=== PATIENT | female | born 1950 | race Caucasian/White ===

== ENCOUNTER → 2025-01-27 | Outpatient (CLI) | payer MEDICARE, MEDICAID, SELFPAY ==
--- NOTE | 2025-01-27 15:30 | XR_ITS ---
Examination: Arterial duplex lower extremity study. Date and time of exam: January 27, 2025 1545 hours INDICATIONS: Diagnosis peripheral obstructive arterial disease in the lower extremities years Findings: Duplex sonographic imaging of the lower extremity arteries using B-mode/[place] scale imaging and Doppler spectral analysis and color flow. Ankle brachial indices have been recorded. Right common femoral artery demonstrates monophasic flow. Right superficial femoral artery demonstrates monophasic flow. Right popliteal artery demonstrates monophasic flow. Right posterior tibial artery demonstrated monophasic flow. Right ankle/brachial index is 0.5. Left common femoral artery demonstrates monophasic flow. Left superficial femoral artery demonstrates monophasic flow. Left popliteal artery demonstrates monophasic flow. Left posterior tibial artery demonstrated monophasic flow. Left ankle/brachial index is 0.5. Impression: Severe bilateral peripheral obstructive arterial disease Consider correlation with CTA abdominal aorta iliofemoral run off post intravenous contrast
== END | disposition home or self-care (01) ==
LOC: CDIM 15:24
PROVIDERS: PCP Physician Assistant; Referring Provider Physician Assistant; Visit Provider Physician Assistant
DX: I73.9 Peripheral vascular disease, unspecified (principal)
CPT/HCPCS: 93925

== ENCOUNTER → 2025-03-16 | Outpatient (CLI) | payer MEDICARE, MEDICAID, SELFPAY ==
[2025-03-16 17:55] LABS: Blood Urea Nitrogen 14 mg/dL (9-23); Creatinine (Component) 1.3 mg/dL (0.6-1.3); eGFR 42 See Note
== END | disposition home or self-care (01) ==
LOC: COPL 15:57
PROVIDERS: PCP Physician Assistant; Referring Provider Surgery Vascular Surgery; Visit Provider Surgery Vascular Surgery
DX: I70.211 Atherosclerosis of native arteries of extremities with intermittent claudication, right leg (principal)
CPT/HCPCS: 36415; 82565; 84520

== ENCOUNTER → 2025-03-22 | Outpatient (CLI) | payer MEDICARE, MEDICAID, SELFPAY ==
--- NOTE | 2025-03-22 15:30 | XR_ITS ---
Examination: CTA abdominal aorta iliofemoral runoff. 2-D sagittal coronal reconstructions. 3-D reconstructions, vascular Exam date and time: March 22, 2025 1609 hours INDICATIONS: Numbness and pain in the lower extremities 2 months, diagnosis atherosclerosis of [place] arteries of extremity Technique: Multiple CTA images of the abdominal aorta iliofemoral runoff arterial vessels, 2.0 mm slice thickness, post intravenous administration 130 cc [id number] 2-D sagittal coronal reconstructions. 3-D reconstructions, vascular 3-D postprocessing, including vascular maximum intensity projection images, 3-D volume rendering Low dose protocols were performed. One or more of the following dose reduction techniques were used; automated exposure control, adjustment of the mA and/or KV according to patient size, use of iterative reconstruction technique. Findings: Mild enlargement cardiac contour No focal liver or splenic lesions Gallstones Gallbladder wall appears thickened Severe scarring left kidney with prominent left hydronephrosis, wall thickening of the pelvicalyceal system Wall thickening involving the urinary bladder No bowel obstruction Normal appendix Aortic calcification Heavy calcification origin celiac and superior mesenteric axes Attenuated left renal arteries Severe calcification at the aortic bifurcation 80% plus stenosis extending into the origin of the common iliac arteries Occlusion proximal right common iliac artery over 15 mm, second more distal 90% stenosis right common iliac artery image 147 70% stenosis mid left common iliac artery Occlusion both external iliac arteries with reconstitution with collaterals of the common femoral arteries Right superficial femoral artery intact as well as right popliteal artery Attenuation right main continuation trunk Poor filling and probable occlusion of the mid and distal right anterior tibial artery Left superficial femoral artery intact as well as left popliteal artery Occlusion of the proximal left anterior tibial artery markedly attenuated main continuation trunk Left anterior tibial artery fills to the ankle IMPRESSION: Severe calcification at the aortic bifurcation, 80% plus stenosis at the bifurcation extending into the origin of the common iliac arteries Occlusion right common iliac artery over 15 mm, more distal 90% stenosis right segment 70% stenosis mid left common iliac artery Occlusion both external iliac arteries with reconstitution of the common femoral arteries Trifurcation arterial disease as above
== END | disposition home or self-care (01) ==
LOC: CCTX 15:00
PROVIDERS: PCP Surgery Vascular Surgery; Referring Provider Surgery Vascular Surgery; Visit Provider Surgery Vascular Surgery
DX: I70.0 Atherosclerosis of aorta (principal); I70.202 Unspecified atherosclerosis of native arteries of extremities, left leg; I77.89 Other specified disorders of arteries and arterioles
CPT/HCPCS: 75635; A4649; Q9967

== ENCOUNTER 2025-04-24 03:36 | Emergency (ER) | payer MEDICARE, MEDICAID, SELFPAY ==
[2025-04-24 03:42] VITALS: BP 144/83; PULSE 85; RESP 18; TEMP 36.9; O2SAT 95
--- NOTE | 2025-04-24 03:45 | XR_ITS ---
Examination: CT abdomen and pelvis without contrast. Coronal 3-D reconstructions. Sagittal 2-D reconstructions. Date and time of exam:April 23, 2025, 0356 hrs. Indications: Onset abdominal pain and vomiting today. CTDI: vol (mGy): 8.98. DLP: (mGycm): 509 Technique: Axial images of the abdomen have been obtained, 3 mm slice thickness Intravenous contrast material has not been administered. Low dose protocols were performed. One or more of the following dose reduction techniques were used; automated exposure control, adjustment of the mA and/or KV according to patient size, use of iterative reconstruction technique. Findings: Heavy calcification left anterior descending coronary artery Mild enlargement cardiac contour. No focal liver or splenic lesions Gallstones No pancreatic or adrenal mass Atrophic severely scarred left kidney without ureteral calculi, perhaps ureteral stricture No pericecal inflammatory change Numerous fluid distended small bowel loops No pelvic mass Bladder intact Severe osteopenia with moderate degenerative disc disease L4-L5, L5-S1 Impression: Cholelithiasis Atrophic severely scarred left kidney with significant hydronephrosis which may relate to chronic ureteral stricture, no ureteral calculi noted Fluid distended small bowel loops, consider ileus, enteritis, early small bowel obstruction not excluded, clinical correlation advised.
--- NOTE | 2025-04-24 03:47 | PD.EDRME ---
Rapid Medical Screening Exam RME Arrival date/time: 04/24/25 03:36 This is a case of 75 y/o female with pmhx CHF, HTN, HLD, on Plavix came in in the emergency room due to generalized abdominal pain nausea vomiting diarrhea today worsening of the symptoms this patient decided to start consult here in the emergency room Chief Complaint: Nausea/Vomiting/Diarrhea Time Seen by Provider: 04/24/25 03:45 Vital signs: Vital Signs Temperature 98.4 F 04/24/25 03:42 Pulse Rate 85 04/24/25 03:42 Respiratory Rate 18 04/24/25 03:42 Blood Pressure 144/83 H 04/24/25 03:42 Pulse Oximetry (%) 95 04/24/25 03:42 Oxygen Delivery Method Room Air 04/24/25 03:42
[2025-04-24] MEDS: ONDANSETRON ODT 4 MG TABRAP PO (04:01)
--- NOTE | 2025-04-24 04:14 | PC.NURSE ---
pt states im going to pass out . this nurse assessed pt. vital signs were taken. bp of 158/99, heart rate of 85, o2 sats 94% on room air. pt denies sob, chest pain, or dizziness. pt reports that she is weak and has n/v/d. zofran was given. pt was educated that it may take some time for the med to start taking affects. approx 5min earlier med was given to pt. this rn told pt she will wait in lobby. pt raised voice and stated that she doesnt want to go to lobby. pt wanted to stay in the triage room. rn told patient that triage room are not meant for pt to stay as a waiting room.
--- NOTE | 2025-04-24 04:29 | PD.EDNV ---
Nausea/Vomit./Diarrhea-RME/HPI General Chief complaint: Nausea/Vomiting/Diarrhea Stated complaint: VOMITING,ABD PAIN Time Seen by Provider: 04/24/25 03:45 Source: patient Arrival date/time: 04/24/25 03:36 Mode of arrival: ambulatory Limitations: no limitations RME / HPI RME / HPI Narrative: 04/24/25 03:36 This is a case of 75 y/o female with pmhx CHF, HTN, HLD, on Plavix came in in the emergency room due to generalized abdominal pain nausea vomiting diarrhea today worsening of the symptoms this patient decided to start consult here in the emergency room. Dr. Bhatia?s Main ED Evaluation: Related Data Home Medications ?Medication ?Instructions ?Recorded ?Confirmed clopidogrel 75 mg tablet (Plavix) 75 mg PO DAILY BLOOD THINNER ##0 05/24/10 12/15/20 simvastatin 40 mg tablet 40 mg PO HS CHOLESTEROL ##0 05/24/10 12/15/20 clonazepam 0.5 mg tablet (Klonopin) 0.5 mg PO TID PRN ANXIETY #0 tabs 10/19/14 12/15/20 amlodipine 5 mg tablet 5 mg PO QDAY 05/06/18 12/15/20 benazepril 20 mg tablet 20 mg PO BID 05/06/18 12/15/20 meclizine 25 mg tablet 25 mg PO QDAY 05/06/18 12/15/20 bupropion HCl 300 mg 24 hr tablet, 300 mg PO QAM 09/14/20 12/15/20 extended release (Wellbutrin XL) conjugated estrogens 0.625 mg 0.625 mg PO QDAY 09/14/20 12/15/20 tablet (Premarin) diphenoxylate-atropine 2.5 1 tab PO QHS PRN 09/14/20 12/15/20 mg-0.025 mg tablet (Lomotil) oxybutynin chloride 10 mg 10 mg PO QDAY 09/14/20 12/15/20 tablet,extended release 24 hr Previous Rx's ?Medication ?Instructions ?Recorded ondansetron 4 mg disintegrating 4 mg PO Q6H PRN nausea and 07/24/18 tablet vomiting #14 tabs hydrocodone 10 mg-acetaminophen 1 tab PO Q8H PRN pain #10 tabs 04/08/23 325 mg tablet Allergies Allergy/AdvReac Type Severity Reaction Status Date / Time prochlorperazine Allergy Severe NAUSEA, Verified 04/24/25 03:37 VOMITING morphine Allergy Intermediate Rash Verified 04/24/25 03:37 Review of Systems Review of Systems Systems Reviewed: All systems reviewed, normal except as documented Past Medical History Past Medical History CARDIAC: Positive Cardiac Disorders, Peripheral Vascular Disease, Hypercholesterolemia, Congestive Heart Failure and Hypertension RESPIRATORY: Negative Chronic Obstructive Pulmonary Disease (COPD) or Asthma GENITOURINARY: Negative Renal Disease ENDOCRINE: Negative Diabetes Mellitus Type 1 or Diabetes Mellitus Type 2 HEMATOLOGIC: Negative Sickle Cell Disease OTHER HISTORY: Positive Clostridium Difficile and Cervical Cancer Family History FAMILY HISTORY: Positive Family Cardiac Disorders Surgical History SURGICAL: Positive Coronary Artery Bypass Graft and Hysterectomy Social History SMOKING STATUS: Current some day smoker SECOND HAND EXPOSURE: No ED Exam General Limitations: Present no limitations Course Quality Measures none Orders Category Date Time Status CT abdomen pelvis wo con Stat Exams 04/24/25 03:45 Taken CBC Stat Lab 04/24/25 03:45 Ordered Comprehensive Metabolic Panel Stat Lab 04/24/25 03:45 Ordered Lipase Stat Lab 04/24/25 03:45 Ordered Urinalysis Stat Lab 04/24/25 03:45 Ordered Ondansetron Inj [Zofran Inj] Med 04/24/25 03:45 Discontinued 4 mg IVP X1 ONE Ondansetron Odt [Zofran Odt] Med 04/24/25 03:56 Discontinued 4 mg PO X1 ONE Sodium Chloride 0.9% 1000 ml [Ns] 1,000 ml Med 04/24/25 03:46 Discontinued IV 999 mls/hr Vital Signs Vital signs: Vital Signs Temperature 98.4 F 04/24/25 03:42 Pulse Rate 85 04/24/25 03:42 Respiratory Rate 18 04/24/25 03:42 Blood Pressure 144/83 H 04/24/25 03:42 Pulse Oximetry (%) 95 04/24/25 03:42 Oxygen Delivery Method Room Air 04/24/25 03:42 Nausea/Vomiting/Diarrhea MDM Narrative MDM Narrative:: Scribe Attestation: [email or web address] am scribing for and in the presence of Dr. Bhatia. Provider Notation: Although this document has been carefully reviewed, there may still be some phonetic and other typographical errors. These errors are purely grammatical due to imperfections in the software program and should not be construed in any way to compromise the substance of the patient's medical care during this visit. Patient data External records reviewed:: [facility] previous records Clinical information provided by:: patient Social determinants that could affect healthcare access:: none Patient has the following chronic illnesses:: See PMH above How is presenting disease/condition affected by chronic disease/condition?: uneffected by Evaluation data The following diagnostics were reviewed and interpreted by me:: lab results and radiology exam(s) Lab and/or radiology exams considered but not ordered:: na Interpretation Summary: Refer to [facility] Medications / Prescriptions Medications / Prescriptions considered but not ordered:: na Medication administrations:: Medication Administration History Discontinued Medications Sodium Chloride (Ns) 1,000 mls @ 999 mls/hr IV .Q1H1M ONE Stop: 04/24/25 04:46 Ondansetron HCl (Ondansetron Inj 2 Mg/Ml Inj 2 Ml) 4 mg IVP X1 ONE; Protocol Stop: 04/24/25 03:46 Last Admin: 04/24/25 03:55 Dose: Not Given Documented By: IDANIA Non-Admin Reason: Cancelled by Provider Ondansetron HCl (Ondansetron Odt 4 Mg Tabrap) 4 mg PO X1 ONE; Protocol Stop: 04/24/25 03:57 Last Admin: 04/24/25 04:01 Dose: 4 mg Documented By: IDANIA as above, if any Diagnosis Most likely diagnosis given after review of the tests above:: See clinical impression below Discharge Plan Prescriptions/Referrals Prescriptions/Med Rec: No Action bupropion HCl [Wellbutrin XL] 300 mg tablet extended release 24 hr 300 mg PO QAM Premarin 0.625 mg tablet 0.625 mg PO QDAY diphenoxylate-atropine [Lomotil] 2.5-0.025 mg tablet 1 tab PO QHS PRN oxybutynin chloride 10 mg tablet extended release 24hr 10 mg PO QDAY clopidogrel [Plavix] 75 MG tablet 75 mg PO DAILY Qty: 0 simvastatin 40 MG tablet 40 mg PO HS Qty: 0 clonazepam [Klonopin] 0.5 MG tablet 0.5 mg PO TID PRN (Reason: ANXIETY) Qty: 0 amlodipine 5 mg tablet 5 mg PO QDAY meclizine 25 mg tablet 25 mg PO QDAY benazepril 20 mg tablet 20 mg PO BID ondansetron 4 mg tablet,disintegrating 4 mg PO Q6H PRN (Reason: nausea and vomiting) Qty: 14 0RF hydrocodone-acetaminophen 10-325 mg tablet 1 tab PO Q8H MDD 3 PRN (Reason: pain) Qty: 10 0RF Referrals: Sylvia Aguilar PA-C [Primary Care Provider, Family Practice] - In 1 week Patient/Caregiver Discharge Instructions Print Language: Iranian
[2025-04-24 04:40] VITALS: BP 166/85; PULSE 85; RESP 15; TEMP 36.4; O2SAT 94
[2025-04-24 04:53] LABS: Basophils # (Auto) 0.0 Thou/mm3 (0.0-0.2); Basophils % (Auto) 0 % (0-2.5); Eosinophils # (Auto) 0.1 Thou/mm3 (0.0-0.5); Eosinophils % (Auto) 2 % (0-10); Hematocrit 47.9 % (36.0-46.0); Hemoglobin 15.8 g/dL (12.0-16.0); Immature Granulocytes Auto 0.01 Thou/mm3 (0.00-0.00); Lymphocytes # (Auto) 0.8 Thou/mm3 (1.0-4.8); Lymphocytes % (Auto) 12 % (10-50); Mean Corpuscular HGB Conc 33.0 g/dl (31.0-37.0); Mean Corpuscular Hemoglobin 33.2 pg (25.0-35.0); Mean Corpuscular Volume 101 fL (80-100); Monocytes # (Auto) 0.4 Thou/mm3 (0.0-0.8); Monocytes % (Auto) 6 % (0-12); Neutrophils # (Auto) 5.3 Thou/mm3 (1.8-7.7); Neutrophils % (Auto) 80 % (37-80); Nucleated Red Blood Cell # 0.00 Thou/mm3 (0.00-0.00); Nucleated Red Blood Cell % 0 /100 WBC (0); Platelet Count 177 Thou/mm3 (140-440); RDW Standard Deviation 46.5 fL (36.4-46.3); Red Blood Count 4.76 Miln/mm3 (4.00-5.20); White Blood Count 6.6 Thou/mm3 (3.6-11.0)
[2025-04-24 04:55] VITALS: BMI 32.5
[2025-04-24 05:12] LABS: Alanine Aminotransferase 146 U/L (10-49); Albumin, Serum 4.5 gm/dL (3.4-4.8); Albumin/Globulin Ratio 1.2 (1.2-2.2); Alkaline Phosphatase 309 U/L (46-116); Anion Gap 11 (7-16); Aspartate Amino Transferase 291 U/L (0-34); BUN/Creatinine Ratio 9 Ratio (12-20); Bilirubin,Total 2.4 mg/dL (0.3-1.2); Blood Urea Nitrogen 11 mg/dL (9-23); Calcium 10.0 mg/dL (8.3-10.6); Calcium (Corrected) 10.0 mg/dL (8.5-10.1); Carbon Dioxide 31.4 mMol/L (20.0-31.0); Chloride 97 mMol/L (98-107); Creatinine (Component) 1.2 mg/dL (0.6-1.3); Estimated Creatinine Clearance 38.6 mL/min (>60); Globulin 3.9 gm/dL (2.3-3.5); Glucose 142 mg/dL (74-106); Osmolality,Calculated 278 (275-295); Potassium 4.5 mMol/L (3.4-5.1); Sodium 139 mMol/L (136-145); Total Protein 8.4 gm/dL (5.7-8.2); eGFR 47 See Note
--- NOTE | 2025-04-24 05:13 | PRELIM_ITS ---
CT scan of the abdomen and pelvis without intravenous contrast (axial sections with sagittal and coronal reformats) April 24, 2025 at 0356 hours Clinical History: Abdominal pain. Comparison: No prior study is available for comparison. Findings: The lung bases are clear. Coronary atherosclerosis is noted. Mild cardiomegaly. Small gastric hiatal hernia. Cholelithiasis. Questionable gallbladder wall thickening, obscured by motion. The liver, spleen, adrenal glands, pancreas are unremarkable. Severe left hydroureteronephrosis and renal atrophy. Normal right kidney. The urinary bladder is decompressed, limiting evaluation. There is no adnexal cyst or mass. The appendix is not visualized; however, there is no evidence of inflammatory process in the right lower quadrant to suggest appendicitis. No free intraperitoneal air or fluid. Diffuse small bowel air-fluid levels with upper normal bowel caliber. The distal small bowel is decompressed. Colon is decompressed. Mild small bowel mesenteric edema. No acute osseous process. 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 Probable stenosis of the bilateral iliac arteries. Femoral-femoral artery graft. Moderate pelvic floor prolapse. Impression: 1. Cholelithiasis. Consider ultrasound if there is concern for cholecystitis. 2. Chronic left distal ureteral obstruction with severe renal atrophy. 3. Ileus versus early or partial distal small bowel obstruction. Consider adhesions. 4. Severe atherosclerotic disease as above. Report Electronically Signed By: Brian Hyde 04/24/2025 5:13:23 AM [EST]
--- NOTE | 2025-04-24 05:18 | XR_ITS ---
Examination: Abdomen sonogram, Limited Date and time of exam: April 24, 2025, 0549 hrs. Indications: Right upper abdominal pain beginning 12 hours ago. Technique: Real-time blake scale transabdominal sonographic images of the upper abdomen obtained. Findings: Gallstones. Abnormal thickening gallbladder wall 0.6 cm Common bile duct enlarged 1.1 cm no definite stones. Pancreas obscured by bowel gas. Liver 13.5 cm fatty infiltration irregular margins no focal liver lesions Normal hepatopedal portal venous flow Patent IVC Impression: Calculus cholecystitis. Abnormal enlargement common bile duct 1.1 cm, consider MRCP follow-up.
--- NOTE | 2025-04-24 06:02 | PD.EDADDENDU ---
Emergency Room Addendum Addendum Narrative: 0600: Care assumed from Dr. Bhatia, the previous shift emergency physician. Past medical, surgical, social and family history reviewed. Vitals and home medications reviewed. Results and treatment plan discussed. I will assume the care of the patient at this time and will follow the patient, pending bed availability at [facility]. Please refer to the emergency department record for history and examination from initial visit.
[2025-04-24 06:04] VITALS: BP 169/88; PULSE 78; RESP 23; TEMP 37; O2SAT 95
--- NOTE | 2025-04-24 06:34 | PD.EDNV ---
Nausea/Vomit./Diarrhea-RME/HPI General Chief complaint: Nausea/Vomiting/Diarrhea Stated complaint: VOMITING,ABD PAIN Time Seen by Provider: 04/24/25 03:45 Arrival date/time: 04/24/25 03:36 Mode of arrival: ambulatory RME / HPI RME / HPI Narrative: 04/24/25 03:36 This is a case of 75 y/o female with pmhx CHF, HTN, HLD, on Plavix came in in the emergency room due to generalized abdominal pain nausea vomiting diarrhea today worsening of the symptoms this patient decided to start consult here in the emergency room. Ms Rosenberg is a 75 year old female with PMH of severe PAD s/p bilateral femoropopliteal bypass (on Plavix), H/O cervical cancer status post radiation therapy, status post hysterectomy, Hypertension, Hyperlipidemia and remote history of seizure disorder (not on any medication) who presented to [facility] ED with the chief complaint of abdominal pain. She complains of generalized abdominal pain since yesterday, moderate to severe intensity around periumblical region radiating to the whole abdomen, denies any aggravating and relieving factors. Also reports 10-12 episodes of emesis non-bloody consisting of undigested food associated with nausea. Patient also complains of bladder fullness, denies any dysuria or burning pain. 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 She denies any chest pain, headache, fevers, chills and myalgias. Related Data Home Medications ?Medication ?Instructions ?Recorded ?Confirmed clopidogrel 75 mg tablet (Plavix) 75 mg PO DAILY BLOOD THINNER ##0 05/24/10 12/15/20 simvastatin 40 mg tablet 40 mg PO HS CHOLESTEROL ##0 05/24/10 12/15/20 clonazepam 0.5 mg tablet (Klonopin) 0.5 mg PO TID PRN ANXIETY #0 tabs 10/19/14 12/15/20 amlodipine 5 mg tablet 5 mg PO QDAY 05/06/18 12/15/20 benazepril 20 mg tablet 20 mg PO BID 05/06/18 12/15/20 meclizine 25 mg tablet 25 mg PO QDAY 05/06/18 12/15/20 bupropion HCl 300 mg 24 hr tablet, 300 mg PO QAM 09/14/20 12/15/20 extended release (Wellbutrin XL) conjugated estrogens 0.625 mg 0.625 mg PO QDAY 09/14/20 12/15/20 tablet (Premarin) diphenoxylate-atropine 2.5 1 tab PO QHS PRN 09/14/20 12/15/20 mg-0.025 mg tablet (Lomotil) oxybutynin chloride 10 mg 10 mg PO QDAY 09/14/20 12/15/20 tablet,extended release 24 hr Previous Rx's ?Medication ?Instructions ?Recorded ondansetron 4 mg disintegrating 4 mg PO Q6H PRN nausea and 07/24/18 tablet vomiting #14 tabs hydrocodone 10 mg-acetaminophen 1 tab PO Q8H PRN pain #10 tabs 04/08/23 325 mg tablet Allergies Allergy/AdvReac Type Severity Reaction Status Date / Time prochlorperazine Allergy Severe NAUSEA, Verified 04/24/25 03:37 VOMITING morphine Allergy Intermediate Rash Verified 04/24/25 03:37 Review of Systems Review of Systems Narrative Review of Systems: ROS: -CONSTITUTIONAL: Denies weight loss, fever and chills. -HEENT: Denies changes in vision and hearing. -RESPIRATORY: Positive for SOB on exertion and denies any cough. -CV: Denies palpitations and Chest Pain. -GI: Positive for abdominal pain, nausea, vomiting, denies any constipation and diarrhea. -: Denies dysuria and urinary frequency. Positive for bladder fullness. -MSK: Denies myalgia and joint pain. -SKIN: Denies rash and pruritus. -NEUROLOGICAL: Denies headache and syncope. -PSYCHIATRIC: Denies recent changes in mood. Denies anxiety and depression. Past Medical History Past Medical History Comments PMH COMMENT: PMH: Positive for severe PAD s/p bilateral femoropopliteal bypass (on Plavix), H/O cervical cancer status post radiation therapy, status post hysterectomy, Hypertension, Hyperlipidemia and remote history of seizure disorder PSHx: Hysterectomy, bilateral femoropopliteal bypass (follows Dr Cates) Allergies: Morphine- Rash, Prochlorperazine- Nausea/Vomiting Social history: -Smoking: Denies -Alcohol Use: Denies Family History: No significant family history ED Exam Narrative Physical exam: Physical Exam General: Awake and in no acute distress. Conversational and non-toxic appearing. HEENT: Normocephalic, atraumatic, mucous membranes moist. Heart: Regular rate and rhythm, no murmurs. Lungs: Clear to auscultation with no wheezing or crackles. Abdomen: Soft, Obese, generalised tenderness, positive bowel sounds. Voluntary Guarding. Neurologic: Alert and oriented x3, no gross neurological deficit, and patient able to move all 4 extremities. Extremities: No edema. Skin: No rash or ecchymoses. Course Course Course Narrative: 08:49- Received a call from [facility] Transfer center, Presented case to the transfer nurse. She reported she will present to the Gi specialist and call us back. 10:50- Received a call from [facility] transfer center Areli Singleton she presented the case to advanced endoscopy PA Abi Godfrey, she recommends observing patient for 4 to 5 days and trend LFTs as patient took Plavix yesterday morning and patient is not a candidate for ERCP. case discussed with Dr. Diallo, will reach out to Areli to explain the need of emergent transfer. 11:15-Dr. Diallo discussed case with GI PA Abi Godfrey, mey HARTMAN patient cannot get ERCP needs Plavix and can be monitored at the facility. Dr. Diallo explained to her that patient needs further workup to rule out choledocholithiasis needs MRCP and delaying MRCP would be further delaying care and we will need ER to ER transfer for services not available at the facility. Informed transfer nurse, transfer center and transfer nurse supervisor hand workers, [facility] said they will reach back to us. 12:57-informed by charge nurse that patient is accepted at [facility], transport will be arranged by transfer nurse. Quality Measures none Orders Category Date Time Status In and Out Catheter X1 Care 04/24/25 06:48 Completed Consult to Gastroenterology Stat Cons 04/24/25 10:30 Ordered Referral - [place] Stat Cons 04/24/25 07:[address] abdomen pelvis wo con Stat Exams 04/24/25 03:45 Completed MR MRCP Stat Exams 04/24/25 Stop Req US gall bladder Stat Exams 04/24/25 05:18 Completed Amylase Stat Lab 04/24/25 12:24 Received CBC Stat Lab 04/24/25 04:45 Completed Comprehensive Metabolic Panel Stat Lab 04/24/25 04:45 Results Lipase Stat Lab 04/24/25 04:45 Results Lipase Stat Lab 04/24/25 12:24 Received Urinalysis Stat Lab 04/24/25 06:04 Completed DiphenhydrAMINE INJ [Benadryl Inj] Med 04/24/25 07:09 Active 25 mg IVP X1 PRN Morphine* Inj Med 04/24/25 07:01 Active 2 mg IVP Q4H PRN Ondansetron Inj [Zofran Inj] Med 04/24/25 03:45 Discontinued 4 mg IVP X1 ONE Ondansetron Odt [Zofran Odt] Med 04/24/25 03:56 Discontinued 4 mg PO X1 ONE Piper/Tazo 3.375 gm Premix [Zosyn] Med 04/24/25 14:00 Active 3.375 gm in 50 ml IV Q8HR Piper/Tazo Inj [Zosyn Inj] 4.5 gm Med 04/24/25 07:15 Discontinued Sodium Chloride 0.9% (Pop) [NS 0.9% mini bag] 100 ml IV X1 Sodium Chloride 0.9% 1000 ml [Ns] 1,000 ml Med 04/24/25 03:46 Discontinued IV 999 mls/hr Sodium Chloride 0.9% 500 ml [Ns] 500 ml Med 04/24/25 06:23 Discontinued IV 999 mls/hr Vital Signs Vital signs: Vital Signs Temperature 98.4 F 04/24/25 03:42 Pulse Rate 85 04/24/25 03:42 Respiratory Rate 18 04/24/25 03:42 Blood Pressure 144/83 H 04/24/25 03:42 Pulse Oximetry (%) 95 04/24/25 03:42 Oxygen Delivery Method Room Air 04/24/25 03:42 Nausea/Vomiting/Diarrhea MDM Narrative MDM Narrative:: #Calculus cholecystitis with Biliary Dilation Patient presented with abdominal pain Total Bilirubin 2.4, AST 291, ALT 146, Alk Phos 309 Gall Bladder US: Calculus cholecystitis., Abnormal enlargement common bile duct 1.1 cm, consider MRCP follow-up. CTAP: Cholelithiasis, -Started on IV Zosyn -Morphine for pain management -Transfer for further eavluation, MRCP/ERCP services not available at the facility #Vomiting and Nausea Bicarb elevated and low chloride secondary to multiple episodes of emesis -Zofran as needed Case discussed with Attending Physician Dr. Yoel Hudson MD Internal Medicine PGY-2 Disclaimer: This note was dictated by speech recognition. Minor errors in juke box mechanic may be present due to voice recognition software. Patient data External records reviewed:: [facility] previous records Clinical information provided by:: patient Social determinants that could affect healthcare access:: none Patient has the following chronic illnesses:: severe PAD s/p bilateral femoropopliteal bypass (on Plavix), H/O cervical cancer status post radiation therapy, status post hysterectomy, Hypertension, Hyperlipidemia and remote history of seizure disorder How is presenting disease/condition affected by chronic disease/condition?: caused by Evaluation data The following diagnostics were reviewed and interpreted by me:: lab results and radiology exam(s) Lab and/or radiology exams considered but not ordered:: MRCP: Unavailable at the facility today Interpretation Summary: CBC: Pertinent Findings Hct 47.9%, MCV 101, CMP: Cl 97, venous CO2 31.4, eGFR 47, Glucose 142, Total Bilirubin 2.4, AST 291, ALT 146, Alk Phos 309, Total Protein 8.4, Globulin 3.9 Gall Bladder US: Calculus cholecystitis., Abnormal enlargement common bile duct 1.1 cm, consider MRCP follow-up. CTAP: Cholelithiasis, Atrophic severely scarred left kidney with significant hydronephrosis which may relate to chronic ureteral stricture, no ureteral calculi noted, Fluid distended small bowel loops, consider ileus, enteritis, early small bowel obstruction not excluded, clinical correlation advised. Medications / Prescriptions Medications / Prescriptions considered but not ordered:: N/A Medication administrations:: Medication Administration History Diphenhydramine HCl (Diphenhydramine Inj 50 Mg/Ml Vial) 25 mg IVP X1 PRN PRN Reason: Allergic Reaction/Rash Piperacillin/Tazobactam/Dextrose (Zosyn) 3.375 gm in 50 mls @ 12.5 mls/hr IV Q8HR [facility]; Protocol Stop: 05/01/25 13:59 Morphine Sulfate (Morphine Sulf Inj 4 Mg/Ml Vial) 2 mg IVP Q4H PRN PRN Reason: PAIN SCALE 4-10(Mod-Sev Last Admin: 04/24/25 07:28 Dose: 2 mg Documented By: CS Discontinued Medications Sodium Chloride (Ns) 1,000 mls @ 999 mls/hr IV .Q1H1M ONE Stop: 04/24/25 04:46 Sodium Chloride (Ns) 500 mls @ 999 mls/hr IV .Q31M ONE Stop: 04/24/25 06:53 Last Infusion: 04/24/25 07:13 Dose: Infused Documented By: Admin: 04/24/25 06:42 Dose: 999 mls/hr Documented By: CCT Piperacillin Sod/Tazobactam (Sod 4.5 gm/ Sodium Chloride) 100 mls @ 200 mls/hr IV X1 ONE Stop: 04/24/25 07:44 Last Admin: 04/24/25 07:28 Dose: 200 mls/hr Documented By: KAREN Ondansetron HCl (Ondansetron Inj 2 Mg/Ml Inj 2 Ml) 4 mg IVP X1 ONE; Protocol Stop: 04/24/25 03:46 Last Admin: 04/24/25 03:55 Dose: Not Given Documented By: IDANIA Non-Admin Reason: Cancelled by Provider Ondansetron HCl (Ondansetron Odt 4 Mg Tabrap) 4 mg PO X1 ONE; Protocol Stop: 04/24/25 03:57 Last Admin: 04/24/25 04:01 Dose: 4 mg Documented By: IDANIA As Above Consultations Consultation(s) initiated? (list below): No Diagnosis Nausea Differential Diagnosis: other Most likely diagnosis given after review of the tests above:: Calculus cholecystitis with Biliary Dilation Admission Indicated Admission indicated?: not indicated Explain why admission is indicated or not indicated:: MRCP/ERCP unavilable at facility, patient warrants further workup. Will benefit from transfer. Admission Request Was there a request for admission?: No Disposition Plan Disposition Plan: Transfer Discharge Plan Plan Patient Disposition: [facility] Facility Pt Being Transferred to: Other-Specify in comment Service Needed for Transfer: Gastroenterology Prescriptions/Referrals Prescriptions/Med Rec: No Action bupropion HCl [Wellbutrin XL] 300 mg tablet extended release 24 hr 300 mg PO QAM Premarin 0.625 mg tablet 0.625 mg PO QDAY diphenoxylate-atropine [Lomotil] 2.5-0.025 mg tablet 1 tab PO QHS PRN oxybutynin chloride 10 mg tablet extended release 24hr 10 mg PO QDAY clopidogrel [Plavix] 75 MG tablet 75 mg PO DAILY Qty: 0 simvastatin 40 MG tablet 40 mg PO HS Qty: 0 clonazepam [Klonopin] 0.5 MG tablet 0.5 mg PO TID PRN (Reason: ANXIETY) Qty: 0 amlodipine 5 mg tablet 5 mg PO QDAY meclizine 25 mg tablet 25 mg PO QDAY benazepril 20 mg tablet 20 mg PO BID ondansetron 4 mg tablet,disintegrating 4 mg PO Q6H PRN (Reason: nausea and vomiting) Qty: 14 0RF hydrocodone-acetaminophen 10-325 mg tablet 1 tab PO Q8H MDD 3 PRN (Reason: pain) Qty: 10 0RF Referrals: Sylvia Aguilar PA-C [Primary Care Provider, Family Practice] - In 1 week Problem List Clinical Impression: Cholecystitis with cholelithiasis Patient/Caregiver Discharge Instructions Print Language: Egyptian Stand Alone Forms: Jennifer Award Info., Patient Portal Info Letter MD Attestation MD Attestation I, Dr. Diallo, have reviewed the history, exam, and assessment of the patient. I have evaluated the patient independently and agree with the plan of care documented by the resident Dr. Hudson. All diagnostic studies were reviewed and discussed. I confirm the diagnosis as documented by the resident. I was present during the Medical Decision Making for this patient. The patient?s plan of care was created between myself and the resident and consistent with our discussion of the patient?s case.
[2025-04-24] MEDS: SODIUM CHLORIDE 0.9% 500 ML 500 ML 999 ML IV (06:42)
[2025-04-24 06:50] LABS: Collection Type, Urine Clean Catch
[2025-04-24 07:16] LABS: Bacteria,Urine 1+; Bilirubin,Urine 1+ (Negative); Blood,Urine Negative (Negative); Color,Urine Yellow (Lt Yel-Yel); Glucose, Urine Negative (Negative); Hyaline Casts,Urine < 1 /hpf (0-1); Ketones,Urine Negative (Negative); Leukocyte Esterase,Urine Negative (Negative); Nitrite,Urine Negative (Negative); PH,Urine 6.5 (5.0-7.0); Protein,Urine Negative (Neg - Trace); RBC,Urine 4 /hpf (0-3); Specific Gravity,Urine 1.021 (1.001-1.035); Squamous Epithelial Cell,Urine 8 /hpf (0-5); Urobilinogen,Urine 8.0 mg/dL (0.0-1.0); WBC,Urine 5 /hpf (0-5)
[2025-04-24 07:17] LABS: Clarity,Urine Hazy (Clear/Hazy)
--- NOTE | 2025-04-24 07:25 | PC.CC ---
Addendum entered by Fabiola Bermudez RN 04/24/25 15:31: [facility] called back and pushed eta to 1645 due to county [place] Addendum entered by Fabiola Bermudez RN 04/24/25 14:38: ambulance eta 1545 Addendum entered by Fabiola Bermudez RN 04/24/25 14:35: 1255- Patient accepted to [facility] for ER to ER under Dr. Fernando by Irvin, report to be called to [phone], CD made, chart printed, all signatures collected, chart given to charge nurse Addendum entered by Fabiola Bermudez RN 04/24/25 11:57: Dr. Hudson called back and states they talked to [facility], will wait for call back, Irvin from [facility] called back inquiring when [facility] would have MRI capabilities and states they will call back, Spoke to Zofia at [facility] who states her physician is unable to do ERCP, so they would not accept patient but can attempt to send patient over to get MRCP and bring back. Addendum entered by Fabiola Bermudez RN 04/24/25 11:13: Dr. Hudson reported back that Dr. Diallo will talk to [facility] and Dr. Hudson will update RN Addendum entered by Fabiola Bermudez RN 04/24/25 10:52: Jessie called back from [facility] and states that the DEVAN Steen states patient will need to be off Plavix for five days prior to MRI. Recommendation is to monitor LFTS and if LFTS increase call [facility] back in five days for MRCP, call transferred to Dr. Hudson Addendum entered by Fabiola Bermudez RN 04/24/25 10:47: Spoke to Dr. Hudson who states he is going to consult Dr. Mckeon and call back Addendum entered by Fabiola Bermudez RN 04/24/25 10:28: Jessie called back from [facility] saying that the [facility] physician stated patient needs further GI workup to rule out sbo and enteritis and that can be done here and MRCP would have to wait until tomorrow at their facility also, call transferred to Dr. Hudson Addendum entered by Fabiola Bermudez RN 04/24/25 09:50: Jessie called back and asked for lab work, labs faxed Addendum entered by Fabiola Bermudez RN 04/24/25 08:44: Spoke to Jessie at [facility], phone call transferred to Dr. Diallo Addendum entered by Fabiola Bermudez RN 04/24/25 08:38: Chart faxed to [facility], images pushed Addendum entered by Fabiola Bermudez RN 04/24/25 08:18: Caled and left VM for [facility] transfer center will wait for call back Original Note: Made aware patient needs transfer for ERCP, packet faxed to [facility]
[2025-04-24] MEDS: PIPER/TAZO INJ 4.5 GM in SODIUM CHLORIDE 0.9% (POP) 100 ML IV (07:28)
[2025-04-24] MEDS: MORPHINE SULF INJ 4 MG/ML VIAL 2 MG IVP ×2 (07:28→16:33)
--- NOTE | 2025-04-24 07:35 | PC.NURSE ---
Taking over pt fropm night nurse. Doctor ordered morphine and antibiotics for pt. I questioned both Dimitris and pt about allergy to morphine, they both stated that the pt has had a rash from morphine before, so they both agree that the benefits outweigh the risk. Pt reiterated to me that when she had the rash before from morphine and it scared her and that she understood that may happen again. I asked Dimitris to order some benadryl prior to admin of the morphine just in case I need it. I informed the pt that I have it just in case, and we are all in agreement with the plan of administering the morphine and countering a reaction with Benadryl if needed. Pt hooked up to all monitors, and showing no distress at this time
[2025-04-24 08:40] VITALS: BP 162/94; PULSE 77; RESP 18; TEMP 36.3; O2SAT 95
[2025-04-24 10:33] VITALS: BP 168/90; PULSE 75; RESP 16; TEMP 37.1; O2SAT 94
[2025-04-24] MEDS: PIPER/TAZO 3.375 GM PREMIX 3.375 GM/50 ML BAG IV (16:19)
--- NOTE | 2025-04-24 17:16 | PC.NURSE ---
Gave report to supervisor transferring and boxing at [facility] at 1516.
--- NOTE | 2025-04-24 17:48 | PD.IMCONS ---
HPI Data of Consult Primary Care Provider: Sylvia Aguilar PA-C Consult Narrative Reason for consult: Pain abdomen abnormal gallbladder ultrasound and CT scan abdomen and pelvis History of present illness: 75 female being evaluated at the request of the internal medicine team for pain abdomen and nausea along with fever Total bilirubin is 2.4 AST ALT 291 and 146 and alk phos of 309 WBC count is 6.6 hemoglobin hematocrit 15.8 and 47.9 Gallbladder ultrasound shows cholelithiasis left atrophic kidney with hydronephrosis most likely due to stricture of the left ureter cholelithiasis fatty liver with hepatomegaly at 13.5 cm thickening of the gallbladder wall at 6 mm and cholelithiasis and the common bile dilated to 1.[address] abdomen pelvis without contrast shows cholelithiasis and fluid distended small bowel loops suggestive of either enteritis or partial small bowel obstruction MRCP could not be done because of the technical reasons cc:: cc: Review of Systems Review of Systems Systems Reviewed: All systems reviewed, normal except as documented Meds Home Medications and Allergies Home Medications ?Medication ?Instructions ?Recorded ?Confirmed ?Type clopidogrel 75 mg tablet (Plavix) 75 mg PO DAILY BLOOD THINNER ##0 05/24/10 12/15/20 History simvastatin 40 mg tablet 40 mg PO HS CHOLESTEROL ##0 05/24/10 12/15/20 History clonazepam 0.5 mg tablet (Klonopin) 0.5 mg PO TID PRN ANXIETY #0 tabs 10/19/14 12/15/20 History amlodipine 5 mg tablet 5 mg PO QDAY 05/06/18 12/15/20 History benazepril 20 mg tablet 20 mg PO BID 05/06/18 12/15/20 History meclizine 25 mg tablet 25 mg PO QDAY 05/06/18 12/15/20 History bupropion HCl 300 mg 24 hr tablet, 300 mg PO QAM 09/14/20 12/15/20 History extended release (Wellbutrin XL) conjugated estrogens 0.625 mg 0.625 mg PO QDAY 09/14/20 12/15/20 History tablet (Premarin) diphenoxylate-atropine 2.5 1 tab PO QHS PRN 09/14/20 12/15/20 History mg-0.025 mg tablet (Lomotil) oxybutynin chloride 10 mg 10 mg PO QDAY 09/14/20 12/15/20 History tablet,extended release 24 hr Allergies Allergy/AdvReac Type Severity Reaction Status Date / Time prochlorperazine Allergy Severe NAUSEA, Verified 04/24/25 03:37 VOMITING morphine Allergy Intermediate Rash Verified 04/24/25 03:37 Exam Vital Signs Temp Pulse Resp BP Pulse Ox O2 Del Method 98.8 F 75 16 168/90 H 94 L Room Air 04/24/25 10:33 04/24/25 10:33 04/24/25 10:33 04/24/25 10:33 04/24/25 10:33 04/24/25 10:33 Constitutional Comments: Chronically ill-appearing Routine Respiratory Exam Comments: Normal to auscultation Routine Abdominal Exam Comments: Midepigastric right upper quadrant tenderness Results Labs 04/24/25 04:45 04/24/25 04:45 Labs: Short CBC 04/24/25 Range/Units 04:45 WBC 6.6 (3.6-11.0) Thou/mm3 Hgb 15.8 (12.0-16.0) g/dL Hct 47.9 H (36.0-46.0) % Plt Count 177 (140-440) Thou/mm3 BMP 04/24/25 04:45 Sodium 139 Potassium 4.5 Chloride 97 L Carbon Dioxide 31.4 H BUN 11 Creatinine 1.2 Glucose 142 H Calcium 10.0 Liver Function 04/24/25 Range/Units 04:45 Total Bilirubin 2.4 H (0.3-1.2) mg/dL AST 291 H (0-34) U/L ALT 146 H (10-49) U/L Alkaline Phosphatase 309 H (46-116) U/L Albumin 4.5 (3.4-4.8) gm/dL Urine 04/24/25 Range/Units 06:04 Urine Color Yellow (Lt Yel-Yel) Urine Clarity Hazy (Clear/Hazy) Urine pH 6.5 (5.0-7.0) Ur Specific [place] 1.021 (1.001-1.035) Urine Protein Negative (Neg - Trace) Urine Glucose (UA) Negative (Negative) Assessment and Plan Additional Assessment & Plan Additional Plan: # Symptomatic cholecystitis with cholelithiasis and most likely choledocholithiasis # Abnormal LFTs most likely due to biliary tract obstruction plan [place] Transfer the patient to higher level of care for ERCP ERS and extraction of the common bile duct stone which is a suspected diagnosis at the time and followed by laparoscopic versus open cholecystectomy Continue IV antibiotics thank you very much for the opportunity to participate in the care of this patient
[2025-04-24 22:05] LABS: Lipase 28 U/L (12-53)
[2025-04-24 22:42] LABS: Lipase 23 U/L (12-53)
[2025-04-25 08:58] LABS: Amylase 44 U/L (30-118)
== END 2025-04-24 16:45 | disposition short-term general hospital (02) ==
PROVIDERS: Nurse Practitioner Family; PCP Physician Assistant
DX: K80.10 Calculus of gallbladder with chronic cholecystitis without obstruction (principal)
CPT/HCPCS: 51701; 36415; 74176; 76705; 80053; 81001; 82150; 83690; 85025; 96361; 96374; 99284; J2270; J2543; J7999; Q0162